=== PATIENT | female | born 1955 | race Hispanic/Latino ===

== ENCOUNTER 2025-03-16 15:03 | Emergency (ER) | payer SELFPAY ==
[~2025-03-16] VITALS: Ht 162.6 cm; Wt 89.4 kg
[2025-03-16] MEDS: 0.9%NACL 1000ML 1,000 ML IV ONE (15:49)
[2025-03-16 15:55] LABS: APPEARANCE,URINE CLOUDY (CLEAR); GLUCOSE, URINE (UA) NEGATIVE (NEGATIVE); LEUKOCYTE ESTERASE ,URINE 75 Leu/uL (NEGATIVE); NITRATE,URINE 2+ (NEGATIVE); OCCULT BLOOD,URINE +- (TRACE) (NEGATIVE)
[2025-03-16 15:56] LABS: ADD UA MICROSCOPIC YES
[2025-03-16 15:58] LABS: SQUAMOUS EPITHELIAL CELL,UR FEW /HPF (0-2)
--- NOTE | 2025-03-16 16:11 | EKG ---
Formerly [facility] Test Date: 2025-03-16 Test Time: 15:37:37 Pat Name: HAO GRAVES Department: ED Room: Gender: F Outside Sales Account Manager: : 1955 Requested By: JONE MCKEON Order Number: [id number] Reading MD: Jose M Fowler Measurements Intervals [place] Rate: 70 P: 64 NV: 172 QRS: -1 QRSD: 94 T: 49 QT: 451 QTc: 486 Interpretive Statements Sinus rhythm No previous ECG available for comparison Electronically Signed On 03-16-2025 16:33:55 EDITOR IN CHIEF by Jose M Fowler Please click the below link to view image of tracing.
[2025-03-16 16:18] LABS: IMMATURE GRANULOCYTE ABSOLUTE 0.03 K/uL (0-1); NUCLEATED RED BLOOD CELLS 0.0 % (0.0-0.19); PLATELET COUNT (AUTO) 329 K/uL (130-400); RED BLOOD CELL COUNT(AUTO) 4.60 MIL/uL (4.00-5.50); RED CELL DISTRIBUTION WIDTH 11.9 % (11.0-15.5); WHITE BLOOD COUNT (AUTO) 9.9 K/uL (4.8-10.8)
[2025-03-16 16:25] LABS: CREATININE 0.8 mg/dL (0.5-1.0); GLOMERULAR FILTR. RATE CALC 79.0 mL/min (>90); GLUCOSE,RANDOM 98.0 mg/dL (70-105); SODIUM SERUM 141.0 mmol/L (136-145); UREA NITROGEN, BLOOD 13.0 mg/dL (7-18)
[2025-03-16 16:28] LABS: INR 1.01 (0.85-1.15)
[2025-03-16 16:30] LABS: CREATINE KINASE, TOTAL 73.0 U/L (21-232); LDL DIRECT 121.0 mg/dL (0-99)
--- NOTE | 2025-03-16 16:32 | HMCIMG ---
EXAM: CT Head Without IV contrast. CLINICAL HISTORY: VERTIGO TECHNIQUE: Axial computed tomography images of the head/brain without intravenous contrast. COMPARISON: None provided. FINDINGS: BRAIN: No evidence of acute hemorrhage. No mass lesion. No CT evidence for acute territorial infarct. No midline shift or extra-axial collections. VENTRICLES: No hydrocephalus. ORBITS: The orbits are unremarkable. SINUSES AND MASTOIDS: The paranasal sinuses and mastoid air cells are clear. BONES: No fracture. SOFT TISSUES: Unremarkable. IMPRESSION: No acute intracranial abnormality. /[place]
--- NOTE | 2025-03-16 16:42 | HMCIMG ---
EXAM: CR Chest, 2 View. CLINICAL HISTORY: CP COMPARISON: None provided. FINDINGS: LUNGS: The lungs show no infiltrate or other acute finding. PLEURAL SPACES: No pleural effusion or pneumothorax. MEDIASTINUM: Cardiac size and mediastinal contours within normal limits. BONES: No acute osseous abnormality. IMPRESSION: No acute cardiopulmonary pathology is evident. /[place]
[2025-03-16 16:54] VITALS: BP 159/73; PULSE 63; RESP 14; TEMP 98.1; O2SAT 98
[2025-03-16] MEDS ORDERED: FLUT16H NS (16:56)
[2025-03-16] MEDS ORDERED: AMOX1TAB16 PO (16:56)
--- NOTE | 2025-03-16 16:56 | ERN ---
General Chief Complaint: Dizzy/Light Headed Stated Complaint: DIZZINESS AND VOMITING Time Seen by MD: 15:08 Source: patient, family History of Present Illness Initial Comments PATIENT IS A 69-YEAR-OLD FEMALE COMING IN COMPLAINING OF DIZZINESS AND HEADA CHES. PER PATIENT SHE ALSO FEELS LIKE VOMITING WHEN SHE FEELS DIZZY. SHE HAS A HISTORY OF SINUS INFECTIONS. Allergies: Coded Allergies: No Known Drug Allergies (Unverified Allergy, Unknown, 03/16/25) Past Medical History Past Medical History: No Pertinent History Past Surgical History: None ROS Dictation CONSTITUTIONAL: NO CHILLS, NO FEVER, WEAKNESS, NO DIAPHORESIS, NO MALAISE. HEAD/FACE: NO SIGNS OF TRAUMA. EENT: NO EYE PAIN, NO BLURRED VISION, NO TEARING, NO DOUBLE VISION, NO EAR PAIN, NO EAR DISCHARGE, NO NOSE PAIN, NO NASAL CONGESTION, NO THROAT PAIN, NO THROAT SWELLING, NO MOUTH PAIN. RESPIRATORY: NO COUGH, NO ORTHOPNEA, NO SOB, NO STRIDOR, NO WHEEZING. CARDIOVASCULAR: NO CHEST PAIN, NO EDEMA, NO PALPITATIONS, NO SYNCOPE. GASTROINTESTINAL/ABDOMINAL: NO ABDOMINAL PAIN, NO CONSTIPATION, NO DIARRHEA, NO NAUSEA, NO VOMITING. GENITOURINARY: NO ABNORMAL DISCHARGE, NO DYSURIA, NO FREQUENT URINATION, NO HEMATURIA. NO COMPLAINTS OF PAIN IN THE GENITALS. MUSCULOSKELETAL: NO BACK PAIN, NO GOUT, NO JOINT PAIN, NO JOINT SWELLING, NO MUSCLE PAIN, NO MUSCLE STIFFNESS, NO NECK PAIN. INTEGUMENTARY: NO CHANGE IN COLOR, NO CHANGE IN HAIR/NAILS, NO DRYNESS, NO LESION, NO LUMPS, NO RASH. NEUROLOGICAL/PSYCH: NO ANXIETY, NOT DEPRESSED, NO EMOTIONAL PROBLEM, NO HEADACHE, NO NUMBNESS, NO PRE-EXISTING DEFICIT, NO HISTORY OF SEIZURES, NO TREMORS, NO WEAKNESS. HEMATOLOGIC/LYMPHATIC: NOT ANEMIC, NO HISTORY OF BLOOD CLOTS, NO APPARENT BLEEDING, NO BRUISING, GLANDS NOT SWOLLEN. ALL SYSTEMS NEGATIVE, EXCEPT NOTED. Physical Exam Physical Exam Dictation VITAL SIGNS: REVIEWED. GENERAL APPEARANCE: ALERT, ORIENTED X3, NO ACUTE DISTRESS, OBESE. HEAD AND FACE: NON-TRAUMATIC. EYES: PERRL, PINK CONJUNCTIVAS, EYELID NO TRAUMA, ANTERIOR CHAMBER CLEAR. EARS: PINNAS INTACT AND NO SIGNS OF TRAUMA OR ERYTHEMA. EAR CANALS CLEAR AND NO DISCHARGE. TMS ERYTHEMA. NOSE: NO DISCHARGE, NO BLEEDING. NASAL TURBINATE SWELLING BILATERAL OROPHARYNX: MOUTH NORMAL, TEETH NO CARIES, TONGUE PINK. PHARYNX ERYTHEMA. T ONSILS NO EXUDATES, NO ABSCESSES NOTED. MUCOUS MEMBRANE MOIST. NECK: SUPPLE, NON-TENDER, NO THYROMEGALY, NO MASSES, NO JVD, NO BRUITS. BREAST: DEFERRED. CHEST: NO TENDERNESS, NO CREPITUS, NO PARADOXICAL MOVEMENT, NO RETRACTIONS. LUNGS: CLEAR, WELL-VENTILATED, SYMMETRIC, NO RALES, NO WHEEZING, NO RHONCHI, NO STRIDOR, GOOD BREATH SOUNDS BILATERALLY. HEART: REGULAR RATE, REGULAR RHYTHM, NO MURMUR, NO GALLOPS. VASCULAR: NO PERIPHERAL EDEMA. ABDOMEN: SOFT, POSITIVE BOWEL SOUNDS, NONDISTENDED, NO GUARDING, NONTENDER, NO REBOUND, NO MASSES NO HEPATOMEGALY, NO SPLENOMEGALY, NO JONES'S SIGN, NO HERNIAS. RECTAL: DEFERRED. GENITAL: DEFERRED. NEUROLOGICAL: NORMAL SPEECH, GROSS MOTOR FUNCTION INTACT, GROSS SENSORY FUNCTION INTACT. MUSCULOSKELETAL: NECK NONTENDER, FULL RANGE OF MOTION, BACK NONTENDER, FULL RANGE OF MOTION. EXTREMITIES: NONTENDER, FULL RANGE OF MOTION. SKIN: COLOR PINK, DRY, NO TURGOR, NO RASH, NO LACERATIONS, NO ABRASIONS, NO CONTUSIONS. LYMPHATICS: DEFERRED. Results Laboratory and Microbiology Lab and Micro Result Laboratory Tests Test 03/16/25 15:03 03/16/25 15:53 Urine Color LIGHT-YELLOW (YELLOW) Urine Appearance CLOUDY (CLEAR) H Urine pH 7.5 (5.0-8.0) Urine Specific [place] 1.014 (1.001-1.031) Urine Protein NEGATIVE mg/dL (NEGATIVE) Urine Glucose (UA) NEGATIVE mg/dL (NEGATIVE) Urine Ketones NEGATIVE mg/dL (NEGATIVE) Urine Occult Blood +- (TRACE) (NEGATIVE) H Urine Nitrate 2+ (NEGATIVE) H Urine Bilirubin NEGATIVE mg/dL (NEGATIVE) Urine Urobilinogen 0.2 mg/dL (0.2-1.0) Urine Leukocyte Esterase 75 Leah/uL (NEGATIVE) H Urine RBC 6-10 /HPF (0-1) H Urine WBC 11-25 /HPF (0-1) H Urine Squamous Epithelial Cells FEW /HPF (0-2) Urine Bacteria RARE /HPF (None Seen) White Blood Count 9.9 K/uL (4.8-10.8) Red Blood Count 4.60 MIL/uL (4.00-5.50) Hemoglobin 13.4 g/dL (12.0-16.0) Hematocrit 40.6 % (36-48) Mean Corpuscular Volume 88.3 fL (79-99) Mean Corpuscular Hemoglobin 29.1 pg (27.0-33.0) Mean Corpuscular Hemoglobin Concent 33.0 g/dL (32.0-36.0) Red Cell Distribution Width 11.9 % (11.0-15.5) Platelet Count 329 K/uL (130-400) Mean Platelet Volume 10.4 fL (7.5-10.5) Immature Granulocyte % (Auto) 0.3 % (0-1) Neutrophils (%) (Auto) 71.0 % (40.0-77.0) Lymphocytes (%) (Auto) 22.5 % (21.0-51.0) Monocytes (%) (Auto) 4.8 % (3.0-13.0) Eosinophils (%) (Auto) 0.8 % (0.0-8.0) Basophils (%) (Auto) 0.6 % (0.0-5.0) Neutrophils # (Auto) 7.0 K/uL (1.8-7.7) Lymphocytes # (Auto) 2.2 K/uL (1.0-4.8) Monocytes # (Auto) 0.5 K/uL (0.1-1.0) Eosinophils # (Auto) 0.08 K/uL (0.00-0.70) Basophils # (Auto) 0.06 K/uL (0.00-0.20) Absolute Immature Granulocyte (auto 0.03 K/uL (0-1) Nucleated Red Blood Cells 0.0 % (0.0-0.19) Prothrombin Time 10.7 SEC (9.6-11.6) Prothromb Time International Ratio 1.01 (0.85-1.15) Activated Partial Thromboplast Time 28.8 SEC (26.3-35.5) Sodium Level 141 mmol/L (136-145) Potassium Level 4.0 mmol/L (3.5-5.1) Chloride Level 105 mmol/L (101-111) Carbon Dioxide Level 26 mmol/L (21-32) Blood Urea Nitrogen 13 mg/dL (7-18) Creatinine 0.8 mg/dL (0.5-1.0) Glomerular Filtration Rate Calc 79 mL/min (>90) Random Glucose 98 mg/dL (70-105) Total Calcium 8.4 mg/dL (8.5-10.1) L Magnesium Level 2.20 mg/dL (1.80-2.40) Total Creatine Kinase 73 U/L (21-232) Troponin I High Sensitivity 13 ng/L (4-50) Triglycerides Level 147 mg/dL (30-200) Cholesterol Level 193 mg/dL (<200) LDL Cholesterol 121 mg/dL (0-99) H HDL Cholesterol 43 mg/dL (35-85) Labs Reviewed?: Yes EKG/XRAY/US/CT/MRI EKG Comment 03/16/2025 TIME 3:37 P.M. VENTRICULAR RATE 70 SINUS RHYTHM [place] [address] WAVE ELEVATION OR DEPRESSION X-RAY Comment IMAGING REPORT Signed PATIENT: HAO GRAVES MR#: [id number] : 1955 SEX: F AGE: 69 LOCATION: [facility] ORDER 33 STATUS: [facility] REPORT#: [id number] SERVICE 32 REASON: CP ORDERING PHYSICIAN: JONE MCKEON MD PROCEDURE: CXR1VW - CHEST 1VW EXAM: CR Chest, 2 View. CLINICAL HISTORY: CP COMPARISON: None provided. FINDINGS: LUNGS: The lungs show no infiltrate or other acute finding. PLEURAL SPACES: No pleural effusion or pneumothorax. MEDIASTINUM: Cardiac size and mediastinal contours within normal limits. BONES: No acute osseous abnormality. IMPRESSION: No acute cardiopulmonary pathology is evident. /[place] DICTATED BY: BERNARDA LORENZO Jr., MD DATE: 03/16/251740 ELECTRONICALLY SIGNED BY: BERNARDA LORENZO Jr., MD DATE: 03/16/251740 CT Scan Comment IMAGING REPORT Signed PATIENT: HAO GRAVES MR#: [id number] : 1955 SEX: F AGE: 69 LOCATION: [facility] ORDER 33 STATUS: REG ER REPORT#: [id number] SERVICE 33 REASON: VERTIGO ORDERING PHYSICIAN: JONE MCKEON MD PROCEDURE: HEAD WO - CT HEAD/BRAIN W/O CONTRAST EXAM: CT Head Without IV contrast. CLINICAL HISTORY: VERTIGO TECHNIQUE: Axial computed tomography images of the head/brain without intravenous contrast. COMPARISON: None provided. FINDINGS: BRAIN: No evidence of acute hemorrhage. No mass lesion. No CT evidence for acute territorial infarct. No midline shift or extra-axial collections. VENTRICLES: No hydrocephalus. ORBITS: The orbits are unremarkable. SINUSES AND MASTOIDS: The paranasal sinuses and mastoid air cells are clear. BONES: No fracture. SOFT TISSUES: Unremarkable. IMPRESSION: No acute intracranial abnormality. /[place] DICTATED BY: GAVIOTA MILTON MD DATE: 03/16/251730 ELECTRONICALLY SIGNED BY: GAVIOTA MILTON MD DATE: 03/16/251730 [facility] MDM: DIFFERENTIAL DIAGNOSIS: SINUSITIS, DEHYDRATION, UTI, CVA RATIONALE: TESTS CONSIDERED AND ORDERED SECONDARY TO SHARED DECISION MAKING INCLUDE: PREVIOUS OUTSIDE RECORDS REVIEWED: OLD ER VISITS. RISK OF COMPLICATION AND/OR MORBIDITY OR MORTALITY OF PATIENT MANAGEMENT: NONE MEDICATIONS-PER MEDICATION RECONCILIATION NEED FOR HOSPITALIZATION: PATIENT DOES NOT MEET CRITERIA FOR HOSPITALIZATION. NEED FOR EMERGENCY MAJOR/MINOR SURGERY: NO PATIENT IS A 69-YEAR-OLD FEMALE COMING IN COMPLAINING OF DIZZINESS AND NAUSEOUSNESS WHICH HE PRESENTS WITH THE DIZZINESS. UPON EVALUATION BILATERAL TYMPANIC MEMBRANE ERYTHEMA MAXILLARY SINUS PRESSURE NASAL TURBINATE SWELLING BILATERAL LABORATORY WORKUP POSITIVE FOR DEHYDRATION AND A URINARY TRACT INFECTION. WITH THESE FINDINGS PATIENT WILL BE DISCHARGED WITH A DIAGNOSIS OF URINARY TRACT INFECTION AND SINUSITIS. I DID ADVISED HER APPROPRIATE FOLLOW UP WITH PCP AND/OR ENT FOR LONG-TERM MANAGEMENT OF SINUSITIS. MEDICATION WILL BE PROVIDED FOR SYMPTOMATIC RELIEF WELL FOR THE INFECTIONS. ED Course Orders Procedure Category Date Status Time Cbc With Differential LAB 03/16/25 Complete 15:33 Prothrombin Time With LAB 03/16/25 Complete INR 15: Lipid Panel LAB 03/16/25 Complete 15:33 Chest 1vw RAD 03/16/25 Resulted 15:33 12 Lead Ekg Tracing- EKG 03/16/25 Resulted Technical 15:33 0.9%Nacl 1000ml (Ns PHA 03/16/25 Complete 1000ml) 16:00 Magnesium LAB 03/16/25 Complete 15:33 Creatine Kinase, Total LAB 03/16/25 Complete 15:33 Troponin I High LAB 03/16/25 Complete Sensitivity 15:33 Partial LAB 03/16/25 Complete Thromboplastin Time 15:33 Basic Metabolic Panel LAB 03/16/25 Complete 15:33 Ct Head/Brain W/O CT 03/16/25 Resulted Contrast 15:34 Urinalysis Profile LAB 03/16/25 Complete 15:34 Culture Urine CLOTILDE 03/16/25 In Process 15:56 Dexamethasone 4mg/Ml PHA 03/16/25 Verified 1ml Vial (Dexametha 17:00 Current Medications Medications (Trade) Dose Ordered Sig/Ruslan Route PRN Reason Start Time Stop Time Status Last Admin Dose Admin Sodium Chloride 1,000 ml @ 0 mls/hr ONCE ONCE IV 03/16/25 16:00 03/16/25 16:01 DC 03/16/25 15:49 Vital Signs Date Time Temp Pulse Resp B/P (MAP) Pulse Ox O2 Delivery O2 Flow Rate FiO2 03/16/25 15:36 98.1 76 14 152/74 97 Room Air* 0 21 03/16/25 15:04 98.1 69 20 156/72 97 0 DX & DISP Disposition: Discharge Departure Impression: Primary Impression: Urinary tract infection Additional Impressions: Sinusitis, Dehydration Condition: Stable Scripts Fluticasone Propionate (Flonase Nasal [place]) 50 Mcg/Actuation [place] 2 SPRAY NS DAILY, #16 GM 0 Refills Prov: JONE MCKEON MD 03/16/25 Amoxicillin/Potassium Clav (Amox Tr-K Clv 875-125 mg Tab) 875 Mg-125 Mg Tablet 1 TAB PO BID for 10 Days, #20 TAB 0 Refills Prov: JOEN MCKEON MD 03/16/25 Additional Instructions: YOU HAVE BEEN REVIEWED IN THE EMERGENCY DEPARTMENT AT [facility] AFTER PRESENTING WITH CHEST PAIN. AFTER CONSIDERING YOUR HISTORY, YOUR RISK FACTORS, YOUR EKG AND YOUR BLOOD TEST TROPONINS, HAVE BEEN FOUND TO BE AT VERY LOW RISK LESS THAN (1 IN 100) OF HAVING A MAJOR ADVERSE CARDIAC EVENT (LIKE HEART ATTACK) IN THE NEAR FUTURE. IN THE " LOW RISK" GROUP, THE RISKS OF DOING FURTHER TESTS AND TREATMENT THE INPATIENT OUTWEIGHS THE BENEFITS. IN MANY PATIENTS IN THE LOW RISK GROUP FOR THE TEST OF ANY SORT OR UNNECESSARY, HOWEVER HE SHOULD DISCUSS THIS FURTHER WITH HIS GENERAL PRACTITIONER WHO WILL UNDERSTAND THE MEDICAL AND PERSONAL BACKGROUNDS BETTER. BECAUSE WE HAVE NEVER DECLARED YOU" NO RISK" WE WOULD SUGGEST. 1 RETURNING FOR MEDICAL REVIEW IF YOU HAVE FURTHER EPISODES OF CHEST PAIN/ARM PAIN OR OTHER CONCERNING SYMPTOMS LIKE DIZZINESS, COLLAPSE, PALPITATIONS OR SHORTNESS OF BREATH. 2. FOLLOWING UP WITH YOUR LOCAL DOCTOR WHO WILL CONSIDER THE NEED FOR FURTHER TESTING AND WILL ALSO ENSURE THAT ANY MODIFIABLE RISK FACTORS YOU MAY HAVE FOR HEART DISEASE ARE OPTIMALLY MANAGED. PATIENT WILL BE DISCHARGED IN STABLE CONDITION AT THE MOMENT DISCHARGE PATIENT STATES , NO CHEST PAIN Referrals: CASSY DIAZ MD, JAMES T MD Time of Disposition: 16:55 JONE MCKEON MD Mar 16, 2025 16:56
== END 2025-03-16 17:43 | disposition home or self-care (01) ==
LOC: EDH 15:03
DX: N39.0 Urinary tract infection, site not specified (principal); J32.9 Chronic sinusitis, unspecified; E86.0 Dehydration; R42 Dizziness and giddiness; R11.10 Vomiting, unspecified
CPT/HCPCS: 36415; 70450; 71045; 80048; 80061; 81001; 82550; 83735; 84484; 85025; 85610; 85730; 87086; 87186; 93005; 96361; 96365; 96372; 99285; J0696; J1100; J7030